=== PATIENT | male | born 1965 | race Caucasian/White ===

== ENCOUNTER 2016-09-13 05:58 | Emergency (ER) | payer MEDICARE ==
--- NOTE | ~2016-09-13 | CT4 ---
[facility] A Service of [facility] & [facility] RADIOLOGY TEXT RESULTS PATIENT: HOOD BUNCH LOCATION: [facility] : 67 UNIT #: [id number] AGE: [address]: Joni Shah MD SEX: M ORDER DR: [id number] [facility] [address] [place], [place] [address] [id number] E MR#: [id number] Acc #: [id number] NAME: HOOD BUNCH : 1965 SEX: M STUDY DATE/TIME: 09/13/2016 7:29 UNIT: [facility] ROOM: STUDY DESCRIPTION: CT Abd and Pelv Wo Cont Attending Physician: Joni Shah M.D. Ordering Physician: Joni Shah M.D. Primary Care Physician: Primary Care Physician No MEDICAL IMAGING REPORT This report is preliminary unless electronic signature is present EXAM CT abdomen and pelvis without IV contrast COMPARISON CT angiography of the chest, abdomen and pelvis dated May 09, 2015. INDICATION 51-year-old male with left flank abdominal pain for [address] imaging of the abdomen and pelvis was performed without IV contrast. This CT exam was performed with one or more of the following radiation dose reduction techniques: automatic exposure control, adjustment of mA and/or kV according to patient size, and iterative reconstruction. FINDINGS Lack of IV contrast limits evaluation of adenopathy, vasculature and viscera. Small fat-containing inguinal hernias bilaterally. Degenerative subchondral cystic change noted in the left femoral head. No acute fractures or suspicious osseous lesions. Small posterior disc protrusion at L3-4 and L5-S1. Band-like atelectasis in both lower lobes. Calcified granuloma in the lingula. Adjacent to one of the calcified granulomas there is a separate nodule which appears to be partly calcified. In the posterior basilar segment of the left lower lobe there is a nodule which is not calcified measuring up to 5.0 mm. Left lower lobe noncalcified nodule is stable from May 09, 2015. Unenhanced liver, gallbladder, pancreas, spleen, adrenal glands and kidneys are within normal limits. No renal or ureteral calculi. Urinary bladder is unremarkable. Prostate gland is within normal limits. There is diverticulosis of the sigmoid colon and the left colon and there is a STS. [facility] A Service of [facility] & [facility] RADIOLOGY TEXT RESULTS PATIENT: HOOD BUNCH LOCATION: [facility] : 67 UNIT #: [id number] AGE: [address]: Joni Shah MD SEX: M ORDER DR: hyperdense diverticulum of the inferior left colon with wall thickening and adjacent fat stranding most consistent with an acute uncomplicated diverticulitis. No evidence of bowel obstruction or perforation. No free fluid. Normal caliber of the abdominal aorta. There are scattered calcifications of the infrarenal abdominal aorta. No adenopathy. There are a few prominent pericecal lymph nodes which are likely reactive, not pathologically enlarged by CT size criteria. Appendix is not definitely seen but there are no secondary findings of acute appendicitis. IMPRESSION 1. Findings most consistent with an acute uncomplicated diverticulitis of the inferior left colon. No free fluid or pneumoperitoneum. No evidence of bowel obstruction. 2. Appendix is not definitively seen and may be surgically absent. No secondary findings of acute appendicitis. 3. Mild degenerative change of the left femoral head. 4. Small posterior disc protrusions at multiple levels of the lumbar spine as described in the body of the report. 5. Calcified granulomas within the left lung. There is a stable 5.0 mm noncalcified nodule in the left lower lobe as compared to May 09, 2015. If the patient does not have risk factors for pulmonary malignancy, then followup CT chest should be performed in May 2017 to document one year stability. Otherwise consider followup chest CT in one year to document stability. Dictated by... Jamie Tony M.D. THIS IS AN ELECTRONICALLY VERIFIED REPORT Jamie Tony M.D. at 09/21/2016 1:12 PM Bashir TD: 09/13/2016 11:13 JOB #: [id number] MEDICAL IMAGING REPORT Page 1 of 1 COPY
[2016-09-13 07:15] LABS: BASOPHIL% 0.3 % (0-2.5); EOSINOPHIL# 0.1 X10e3 (0-0.7); EOSINOPHIL% 0.8 % (0.0-7.0); HEMATOCRIT 46.9 % (38.0-50.0); HEMOGLOBIN 15.6 gm/dL (13.0-16.0); LYMPHOCYTE# 1.6 X10e3 (1.0-3.5); MEAN CELL VOLUME 90.1 FL (83-96); MEAN CORPUSCULAR HEMOGLOBIN 29.9 PG (28-34); MEAN CORPUSCULAR HGB CONC 33.2 g/dL (30-36); MEAN PLATELET VOLUME 8.5 FL (6.5-11.5); MONOCYTE# 1.2 X10e3 (0-1.0); NEUTROPHIL# 9.4 X10e3 (1.5-7.1); NEUTROPHIL% 75.9 % (40-75); PLATELET COUNT 210 X10e3 (140-420); RED BLOOD COUNT 5.21 X10e (3.90-5.60); RED CELL DISTRIBUTION WIDTH 12.7 % (11.0-15.5); WHITE BLOOD COUNT 12.4 X10e3 (4.0-10.5)
[2016-09-13 07:17] LABS: DIFF IND NO
[2016-09-13 07:41] LABS: BUN/CREATININE RATIO 13.75; CALCIUM SERUM 8.8 mg/dL (8.4-10.2); CREATININE SERUM 0.8 mg/dL (0.6-1.4); GLOM FILT RATE Estimated 104.2 mL/min (>60); POTASSIUM 4.1 mmol/L (3.5-5.1)
[2016-09-13 08:06] LABS: URINE SOURCE CLEAN CATCH
[2016-09-13 08:39] LABS: URINE APPEARANCE CLEAR; URINE BILIRUBIN NEG (NEG); URINE BLOOD NEG (NEG); URINE COLOR YELLOW; URINE GLUCOSE NEG (NEG); URINE KETONE NEG (NEG); URINE LEUKOCYTE ESTERASE NEG (NEG); URINE NITRATE NEG (NEG); URINE PROTEIN NEG (NEG); URINE SPECIFIC GRAVITY 1.015 (1.003-1.035)
[2016-09-13 08:43] LABS: CULTURE INDICATED? NO
== END 2016-09-13 08:45 | disposition home or self-care (01) ==
LOC: CED 05:58
PROVIDERS: Emergency Medicine
DX: K57.32 Diverticulitis of large intestine without perforation or abscess without bleeding (principal); F17.210 Nicotine dependence, cigarettes, uncomplicated; Z87.442 Personal history of urinary calculi
CPT/HCPCS: 36415; 74176; 80048; 81003; 85025; 96361; 96374; 96375; 99284; J1885; J2405

== ENCOUNTER 2016-12-30 10:51 | Emergency (ER) | payer MEDICARE ==
[~2016-12-30] VITALS: Ht 167.6 cm; Wt 79.4 kg
--- NOTE | ~2016-12-30 | CR230 ---
[facility] A Service of [facility] RADIOLOGY TEXT RESULTS PATIENT: HOOD BUNCH LOCATION: [facility] : 67 UNIT #: [id number] AGE: [address]: Scarlett Reddy SEX: M ORDER DR: [id number] [facility] [address] [place], [place] [address] [id number] E MR#: [id number] Acc #: [id number] NAME: HOOD BUNCH : 1965 SEX: M STUDY DATE/TIME: 12/30/2016 11:40 UNIT: [facility] ROOM: STUDY DESCRIPTION: CR Shoulder Min 2 View Rt Attending Physician: Scarlett Reddy P.A.-C. Referring Physician: Primary Care Physician No Ordering Physician: Scarlett Reddy P.A.-C. Primary Care Physician: Primary Care Physician No MEDICAL IMAGING REPORT This report is preliminary unless electronic signature is present EXAM Right shoulder series 12/30/2016 HISTORY Trauma and numbness, pain, right arm 2 weeks. TECHNIQUE AP internal and external rotation views of the right shoulder presented with transscapular view. FINDINGS There is no traumatic fracture or malalignment. Mild degenerative changes in the acromioclavicular joint. The acromioclavicular glenohumeral joint relationships appear normal overall. Periarticular soft tissues are unremarkable. Visualized bony thorax unremarkable. Visualized pulmonary parenchyma clear. No acute periarticular soft tissue abnormality. If it would assist in management and the patient is a candidate, shoulder could be further evaluated with elective MRI. Dictated by... Jeison Souza M.D. THIS IS AN ELECTRONICALLY VERIFIED REPORT Jeison Souza M.D. at 12/31/2016 2:25 PM ZULYK/[email or web address] TD: 12/30/2016 19:25 JOB #: [id number] [facility] A Service of [facility] RADIOLOGY TEXT RESULTS PATIENT: HOOD BUNCH LOCATION: [facility] : 67 UNIT #: [id number] AGE: [address]: Scarlett Reddy SEX: M ORDER DR: MEDICAL IMAGING REPORT Page 1 of 1 COPY
--- NOTE | ~2016-12-30 | CT52 ---
[facility] A Service of [facility] & [facility] RADIOLOGY TEXT RESULTS PATIENT: HOOD BUNCH LOCATION: [facility] : 67 UNIT #: [id number] AGE: [address]: Scarlett Reddy SEX: M ORDER DR: [id number] [facility] [address] [place], [place] [address] [id number] E MR#: [id number] Acc #: [id number] NAME: HOOD BUNCH : 1965 SEX: M STUDY DATE/TIME: 12/30/2016 12:34 UNIT: [facility] ROOM: STUDY DESCRIPTION: CT Cervical Spine Wo Cont Attending Physician: Scarlett Reddy P.A.-C. Referring Physician: Primary Care Physician No Ordering Physician: Scarlett Reddy P.A.-C. Primary Care Physician: No Primary Care Physician MEDICAL IMAGING REPORT This report is preliminary unless electronic signature is present EXAM Cervical spine CT no contrast 12/30/[address] cervical spine CT without contrast with multiplanar reformats. This CT exam was performed with one or more of the following radiation dose reduction techniques: automatic exposure control, adjustment of mA and/or kV according to patient size, and iterative reconstruction. CLINICAL HISTORY A 1.5 week history of right shoulder and arm pain with numbness and tingling paresthesias. No known injury. FINDINGS Spine alignment is normal. There is no fracture. There is no bone erosion or destruction. The paraspinous soft tissues are unremarkable. There is discogenic degenerative change but modest, and no acute-appearing abnormality is seen. There is no convincing substantial canal stenosis at any level. There is some mild right foraminal narrowing at 5-6. IMPRESSION Modest degenerative change without acute abnormality. No substantial appearing canal stenosis at any level. There is some mild right foraminal narrowing at C5-6 due to endplate and uncovertebral change but again no acute abnormality is seen. There is some mild right foraminal narrowing is 6-7 as well. Dictated by... Leander Botello M.D. THIS IS AN ELECTRONICALLY VERIFIED REPORT [facility] A Service of [facility] & [facility] RADIOLOGY TEXT RESULTS PATIENT: HOOD BUNCH LOCATION: [facility] : 67 UNIT #: [id number] AGE: [address]: Scarlett Reddy SEX: M ORDER DR: Leander Botello M.D. at 01/01/2017 2:07 PM MARIELLA/laura TD: 12/30/2016 21:18 JOB #: [id number] MEDICAL IMAGING REPORT Page 1 of 1 COPY
== END 2016-12-30 13:45 | disposition home or self-care (01) ==
LOC: CFTX 10:51 → CED 10:51 → CFTX 11:21
DX: M54.12 Radiculopathy, cervical region (principal)
CPT/HCPCS: 72125; 73030; 99284